=== PATIENT | female | born 1965 ===

== ENCOUNTER 2021-05-06 09:47 | Day surgery (SDC) | payer OTHER | END 2021-05-06 16:50 | disposition home or self-care (01) | LOC: AMB-ENDOS 09:47 | PROVIDERS: ATTEND Colon & Rectal Surgery | DX: K63.5 Polyp of colon (principal); K62.1 Rectal polyp; K64.8 Other hemorrhoids; Z12.11 Encounter for screening for malignant neoplasm of colon ==

== ENCOUNTER 2021-08-28 06:30 | Day surgery (SDC) | payer OTHER ==
[~2021-08-28] VITALS: Ht 167.6 cm; Wt 79.8 kg
[~2021-08-28 06:30] MED LIST: ALENDRONATE SOD70 MG PO; D3 + K2 DOTS 11 EACH PO; PROAIR RESPICL90 MCG IH; SIMVASTATIN10 MG PO; VASOTEC2.5 MG PO
== END 2021-08-28 13:15 | disposition home or self-care (01) ==
LOC: CIR.AMB 06:30
PROVIDERS: ATTEND Colon & Rectal Surgery
DX: K56.51 Intestinal adhesions [bands], with partial obstruction (principal); R19.4 Change in bowel habit; Z80.0 Family history of malignant neoplasm of digestive organs; Z20.822 Contact with and (suspected) exposure to COVID-19; K57.30 Diverticulosis of large intestine without perforation or abscess without bleeding